=== PATIENT | female | born 1975 | race Caucasian/White ===

== ENCOUNTER 2020-12-14 13:52 | Emergency (ER) | payer MEDICAID ==
[~2020-12-14] VITALS: Ht 160 cm; Wt 73.5 kg
--- NOTE | 2020-12-14 13:56 | NUR ---
Patient to ER bed 04 to gown for evaluation. Side rails up.
[2020-12-14 14:02] VITALS: BP_SYST 127
--- NOTE | 2020-12-14 14:03 | NUR ---
ER DR. HONEYCUTT AT THE BEDSIDE EXAMINING PT
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
--- NOTE | 2020-12-14 14:11 | NUR ---
PORTABLE X-RAY AT THE BEDSIDE
--- NOTE | 2020-12-14 14:16 | NUR ---
LAB AT THE BEDSIDE FOR BLOOD DRAW
[2020-12-14 14:21] LABS: BASOPHILS # (AUTO) 0.1 K/uL (0.0-0.2); BASOPHILS % (AUTO) 0.8 % (0.0-2.0); EOSINOPHILS # (AUTO) 0.1 K/uL (0.0-0.4); EOSINOPHILS % (AUTO) 1.4 % (0.0-4.0); HEMATOCRIT 36.7 % (36-48); HEMOGLOBIN 12.1 g/dL (12.0-16.0); LYMPHOCYTES % (AUTO) 24.7 % (20.5-51.5); MEAN CORPUSCULAR HEMOGLOBIN 28 pg (27-31); MEAN CORPUSCULAR HGB CONC 33 % (32-36); MEAN CORPUSCULAR VOLUME 84 fL (79.0-98.0); MONOCYTES # (AUTO) 0.6 K/uL (0.0-1.0); MONOCYTES % (AUTO) 7.1 % (1.7-9.3); NEUTROPHILS # (AUTO) 5.4 K/uL (1.8-7.7); PLATELET COUNT (AUTO) 244 K/uL (130-430); RED BLOOD CELL COUNT(AUTO) 4.39 MIL/uL (4.2-6.2); RED CELL DISTRIBUTION WIDTH 14.8 % (9.0-15.0); WHITE BLOOD COUNT (AUTO) 8.1 K/uL (4.8-10.8)
[2020-12-14 14:39] LABS: CALCIUM 8.5 mg/dL (8.4-11.0); CREATININE 0.74 mg/dL (0.55-1.30); POTASSIUM 3.9 mmol/L (3.5-5.1)
[2020-12-14 14:44] LABS: PROTHROMBIN TIME 10.2 SECS (9.5-12.5)
[2020-12-14 14:54] LABS: ALBUMIN 3.5 g/dL (3.4-4.8); FREE T4 (FREE THYROXINE) 1.4 ng/dl (0.8-1.5); THYROID STIMULATING HORMONE 0.63 uIu/mL (0.36-3.74); TOTAL BILIRUBIN 0.2 mg/dL (0.0-1.0)
--- NOTE | 2020-12-14 15:30 | NUR ---
PT RESTING IN BED, NO S/SX OF DISTRESS, V/S STABLE
--- NOTE | 2020-12-14 16:49 | NUR ---
ULTRASOUND AT THE BEDSIDE
[2020-12-14] MEDS ORDERED: LORA-258 PO (18:29)
[2020-12-14] MEDS ORDERED: FAMO20TA8 PO (18:29)
[2020-12-14 18:45] VITALS: BP_SYST 127
--- NOTE | 2020-12-14 18:48 | NUR ---
Patient given written and verbal discharge instructions and verbalizes understanding. ER MD discussed with patient the results and treatment provided. Patient in stable condition. ID arm band removed. Rx of PEPCID AND ATIVAN given. Patient educated on pain management and to follow up with PMD. Pain Scale 0/10. Opportunity for questions provided and answered. Medication side effect fact sheet provided.
== END 2020-12-14 18:48 | disposition home or self-care (01) ==
LOC: SED 13:52
DX: R07.89 Other chest pain (principal); F41.1 Generalized anxiety disorder; E04.1 Nontoxic single thyroid nodule; Z79.899 Other long term (current) drug therapy; Z88.0 Allergy status to penicillin
CPT/HCPCS: 36415; 71045; 76536-TC; 80053; 84439; 84443; 84484; 84703; 85025; 85610-TC; 85730-TC; 93005; 99285

== ENCOUNTER 2021-04-03 00:01 | Emergency (ER) | payer MEDICAID ==
[~2021-04-03] VITALS: Ht 157.5 cm; Wt 79.8 kg
[2021-04-03 00:01] VITALS: BP_SYST 111
[~2021-04-03 00:01] MED LIST: FAMO20TA8 PO; LORA-258 PO
--- NOTE | 2021-04-03 00:40 | NUR ---
Placed in room 08 . Placed on crankshaft balancer, blood pressure machine and pulse oximeter. To gown for exam. Side rails up.
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
--- NOTE | 2021-04-03 00:57 | NUR ---
ER Dr. PASTRANA at bedside examining patient.
[2021-04-03] MEDS ORDERED: MORPHINE 2 MG/ML INJ. SYRINGE IVP ONE (01:00)
[2021-04-03] MEDS ORDERED: PANTOPRAZOLE SODIUM 40 MG/VIAL (PROTONIX) IVP ONE (01:00)
[2021-04-03] MEDS ORDERED: NACL 0.9% 1,000 ML IV ONE (01:00)
[2021-04-03] MEDS ORDERED: DIPHENHYDRAMINE INJ 50 MG/ML VIAL IVP ONE (01:00)
--- NOTE | 2021-04-03 01:00 | NUR ---
# 20 gauge angiocath placed to . Use of asceptic technique. Opsite placed over site. Blood return noted. Blood for lab drawn from site. Flushed with 10 cc of normal saline. No evidence of infiltration noted. Patient tolerated well.
[2021-04-03 01:40] LABS: BASOPHILS # (AUTO) 0.1 K/uL (0.0-0.2); BASOPHILS % (AUTO) 0.7 % (0.0-2.0); EOSINOPHILS # (AUTO) 0.2 K/uL (0.0-0.4); EOSINOPHILS % (AUTO) 1.9 % (0.0-4.0); HEMATOCRIT 35.8 % (36-48); HEMOGLOBIN 11.4 g/dL (12.0-16.0); LYMPHOCYTES % (AUTO) 32.2 % (20.5-51.5); MEAN CORPUSCULAR HEMOGLOBIN 27 pg (27-31); MEAN CORPUSCULAR HGB CONC 32 % (32-36); MEAN CORPUSCULAR VOLUME 84 fL (79.0-98.0); MONOCYTES # (AUTO) 0.7 K/uL (0.0-1.0); MONOCYTES % (AUTO) 7.7 % (1.7-9.3); NEUTROPHILS # (AUTO) 5.3 K/uL (1.8-7.7); NEUTROPHILS % (AUTO) 57.5 % (40.0-70.0); PLATELET COUNT (AUTO) 270 K/uL (130-430); RED BLOOD CELL COUNT(AUTO) 4.29 MIL/uL (4.2-6.2); RED CELL DISTRIBUTION WIDTH 14.8 % (9.0-15.0); WHITE BLOOD COUNT (AUTO) 9.3 K/uL (4.8-10.8)
[2021-04-03 01:44] LABS: BILIRUBIN,URINE NEGATIVE (NEGATIVE); BLOOD, URINE 3+ (NEGATIVE); CLARITY/URINE CLOUDY (CLEAR); COLOR,URINE YELLOW (YELLOW); GLUCOSE,URINE NEGATIVE (NEGATIVE); KETONES,URINE NEGATIVE (NEGATIVE); LEUKOCYTE ESTERASE ,URINE TRACE (NEGATIVE); NITRITE, URINE NEGATIVE (NEGATIVE); PH,URINE 5.5 (5.0-8.0); PROTEIN URINE NEGATIVE (NEGATIVE); UROBILINOGEN,URINE 0.2 (0.2-1.0)
[2021-04-03 01:45] LABS: CALCIUM 8.9 mg/dL (8.4-11.0); CREATININE 0.67 mg/dL (0.55-1.30); POTASSIUM 3.5 mmol/L (3.5-5.1)
[2021-04-03 01:53] LABS: ALBUMIN 3.5 g/dL (3.4-4.8); TOTAL BILIRUBIN 0.2 mg/dL (0.0-1.0)
[2021-04-03 02:28] LABS: BACTERIA,URINE FEW /HPF (None Seen); RBC,URINE 50-80 /HPF (0-3)
--- NOTE | 2021-04-03 03:07 | NUR ---
Dr. Guidry at bedside for re assessment of patient.
--- NOTE | 2021-04-03 03:10 | NUR ---
report given to CHELSEA Quiñones for continuation of care
--- NOTE | 2021-04-03 03:30 | NUR ---
PT RESTING IN BED. STATED SHE WOULD LIKE TO WAIT UNTIL THE SUN COMES OUT TO ORDER [facility] TO TAKE HER HOME.
[2021-04-03] MEDS ORDERED: PRO40 PO (03:40)
--- NOTE | 2021-04-03 04:30 | NUR ---
PT RESTING. IVF INFUSING WITHOUT DIFFICULTIES. RESPIRATIONS EVEN AND UNLABORED. VSS.
[2021-04-03 05:10] VITALS: BP_SYST 132
--- NOTE | 2021-04-03 05:10 | NUR ---
Patient given written and verbal discharge instructions and verbalizes understanding. DR. ZEINA WORLEY MD discussed with patient the results and treatment provided. Patient in stable condition. ID arm band removed. IV catheter removed intact and dressing applied, no active bleeding. Rx of PROTONIX given. Patient educated on pain management and to follow up with PMD. Pain Scale 0/10 Opportunity for questions provided and answered. Medication side effect fact sheet provided.
== END 2021-04-03 05:10 | disposition home or self-care (01) ==
LOC: SED 00:01
DX: R07.2 Precordial pain (principal); K21.9 Gastro-esophageal reflux disease without esophagitis; F41.9 Anxiety disorder, unspecified; E03.9 Hypothyroidism, unspecified; Z88.0 Allergy status to penicillin; Z79.899 Other long term (current) drug therapy
CPT/HCPCS: 36415; 71045; 80053; 81000; 81025; 83690; 83880; 84484; 85025; 87086; 93005; 96361; 96374; 96375; 99285; C9113; J1200; J2270; J7030

== ENCOUNTER 2021-06-01 18:09 | Emergency (ER) | payer OTHER, MEDICAID ==
[~2021-06-01] VITALS: Ht 157.5 cm; Wt 79.4 kg
[~2021-06-01 18:09] MED LIST changes: +PRO40 PO
[2021-06-01 18:39] VITALS: BP_SYST 130
--- NOTE | 2021-06-01 18:44 | NUR ---
PLACED IN WAITING ROOM
--- NOTE | 2021-06-01 20:08 | NUR ---
Patient to ER bed 7. Side rails up.
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
--- NOTE | 2021-06-01 20:23 | NUR ---
BRUNILDA Fernandez at bedside examining patient.
--- NOTE | 2021-06-01 22:00 | NUR ---
Returned from radiology, back to [facility].
[2021-06-01] MEDS ORDERED: IBUPROFEN 800 MG TABLET PO ONE (22:45)
--- NOTE | 2021-06-01 23:14 | NUR ---
X-ray at bedside.
[2021-06-01] MEDS ORDERED: IBUP-1971 PO (23:36)
[2021-06-01 23:47] VITALS: BP_SYST 130
--- NOTE | 2021-06-01 23:47 | NUR ---
Patient given written and verbal discharge instructions and verbalizes understanding. ER MD discussed with patient the results and treatment provided. Patient in stable condition. ID arm band removed. Rx of Ibuprofen given. Patient educated on pain management and to follow up with PMD. Pain Scale 1/10. Opportunity for questions provided and answered. Medication side effect fact sheet provided.
== END 2021-06-01 23:47 | disposition home or self-care (01) ==
LOC: SED 18:09
DX: M25.561 Pain in right knee (principal); R07.89 Other chest pain; Z88.0 Allergy status to penicillin; Z79.899 Other long term (current) drug therapy; V49.49XA Driver injured in collision with other motor vehicles in traffic accident, initial encounter; Y93.89 Activity, other specified; Y92.89 Other specified places as the place of occurrence of the external cause; Y99.8 Other external cause status
CPT/HCPCS: 70450-TC; 71045; 72125-TC; 72170-TC; 73564; 76376; 81025; 99284

== ENCOUNTER 2022-12-19 21:13 | Emergency (ER) | payer MEDICAID ==
[~2022-12-19] VITALS: Ht 157.5 cm; Wt 90.7 kg
[2022-12-19 21:13] VITALS: BP_SYST 165; PULSE 94; RESP 17; TEMP 98.2; O2SAT 97
[~2022-12-19 21:13] MED LIST changes: +IBUP-1971 PO
[2022-12-19 23:41] LABS: BASOPHILS % (AUTO) 0.2 % (0.0-2.0); EOSINOPHILS # (AUTO) 0.2 K/uL (0.0-0.4); EOSINOPHILS % (AUTO) 1.8 % (0.0-4.0); HEMATOCRIT 39.7 % (36-48); HEMOGLOBIN 12.7 g/dL (12.0-16.0); LYMPHOCYTES # (AUTO) 3.5 K/uL (1.0-5.5); LYMPHOCYTES % (AUTO) 33.2 % (20.5-51.5); MEAN CORPUSCULAR HEMOGLOBIN 26 pg (27-31); MEAN CORPUSCULAR HGB CONC 32 % (32-36); MEAN CORPUSCULAR VOLUME 80 fL (79.0-98.0); MONOCYTES # (AUTO) 0.6 K/uL (0.0-1.0); MONOCYTES % (AUTO) 5.5 % (1.7-9.3); NEUTROPHILS # (AUTO) 6.2 K/uL (1.8-7.7); NEUTROPHILS % (AUTO) 59.3 % (40.0-70.0); PLATELET COUNT (AUTO) 330 K/uL (130-430); RED BLOOD CELL COUNT(AUTO) 4.99 MIL/uL (4.2-6.2); RED CELL DISTRIBUTION WIDTH 16.1 % (9.0-15.0); WHITE BLOOD COUNT (AUTO) 10.5 K/uL (4.8-10.8)
[2022-12-19 23:52] LABS: ANION GAP 8 (5-15); CALCIUM 8.5 mg/dL (8.4-11.0); CHLORIDE 104 mmol/L (98-107); CREATININE 0.84 mg/dL (0.55-1.30); GFR AFRICAN AMERICAN 94 mL/min (>90); GLUCOSE 96 mg/dL (74-106); UREA NITROGEN, BLOOD 9 mg/dL (8-21)
[2022-12-19 23:59] LABS: ALANINE AMINOTRANSFERASE 24 U/L (12-78); ALBUMIN 3.7 g/dL (3.4-4.8); ASPARTATE AMINOTRANSFERASE 15 U/L (10-37); TOTAL BILIRUBIN 0.3 mg/dL (0.0-1.0)
[2022-12-20] MEDS ORDERED: LORA-259 PO (01:11)
[2022-12-20 01:50] VITALS: BP_SYST 127; PULSE 94; RESP 17; TEMP 98.2; O2SAT 88
[2022-12-20 01:54] LABS: THYROID STIMULATING HORMONE 12.07 uIu/mL (0.34-4.82)
== END 2022-12-20 01:50 | disposition home or self-care (01) ==
LOC: SED 21:13
DX: R07.9 Chest pain, unspecified (principal); E03.9 Hypothyroidism, unspecified; Z88.0 Allergy status to penicillin; Z79.899 Other long term (current) drug therapy
CPT/HCPCS: 36415; 71045; 80053; 84443; 84484; 85025; 93005; 99285